=== PATIENT | female | born 1955 | race Caucasian/White ===

== ENCOUNTER 2024-06-19 08:11 | Observation (INO) ==
[~2024-06-19 08:11] MED LIST: Lidocaine 2% PF 5 ML VIAL ONE; Naloxone 0.4 mg VIAL 0.4 mg/ml 1 ml VIAL IV PRN; Ondansetron 4 mg VIAL 2 MG/ML 2 ml VIAL IV PRN
[2024-06-19] MEDS ORDERED: fentaNYL 100 mcg/2 ml 50 MCG/ML VIAL ONE ×2 (08:40→14:21)
[2024-06-19] MEDS ORDERED: Midazolam 2 mg/2 ml VIAL 1 mg/ml 2 ml VIAL (2 mg) ONE (08:40)
[2024-06-19] MEDS ORDERED: Dexamethasone IV 4 MG/ML VIAL 1 ml VIAL ONE (08:42)
[2024-06-19] MEDS ORDERED: Ondansetron 4 mg VIAL 2 MG/ML 2 ml VIAL ONE (08:42)
[2024-06-19] MEDS: Buffered Lidocaine 1% SYRIN 1 ml INTRADERM ONE (08:51)
[2024-06-19 08:57] LABS: Rapid COVID-19 Molecular Undetected (Undetected)
[2024-06-19] MEDS ORDERED: ceFAZolin 2 GM PREMIX 2 GM/50 ML BAG ONE (09:02)
[2024-06-19] MEDS ORDERED: Famotidine IV 10 MG/ML 2 ml VIAL (20 mg) ONE (09:02)
[2024-06-19] MEDS: Famotidine IV 10 MG/ML 2 ml VIAL (20 mg) IV ONE (09:09)
[2024-06-19] MEDS: Lactated Ringers 1000 ml BAG 1,000 ML IV SCH ×2 (09:10→16:51)
[2024-06-19] MEDS ORDERED: ROPIVACAINE 5 MG/ML 30 ML BTL (0.5%) ONE (10:05)
[2024-06-19] MEDS ORDERED: Bupivacaine 0.5% PF 10 ML SDV VIAL INJ ONE (10:40)
[2024-06-19] MEDS ORDERED: Ondansetron 4 mg VIAL 2 MG/ML 2 ml VIAL IV PRN (11:07)
[2024-06-19] MEDS ORDERED: Lactulose 30 ml UDC PO PRN (11:07)
[2024-06-19] MEDS ORDERED: Calcium Carb (TUMS) 500 mg CHEW TAB PO PRN (11:07)
[2024-06-19] MEDS ORDERED: Magnesium Hydroxide LIQ 30 ML UDC PO PRN (11:07)
[2024-06-19] MEDS ORDERED: Morphine 2 MG/ML SYRINGE IV PRN (11:07)
[2024-06-19] MEDS ORDERED: Propofol 10 MG/ML 20 ML BTL ONE ×4 (11:44→13:04)
[2024-06-19] MEDS: fentaNYL 100 mcg/2 ml 50 MCG/ML VIAL IV PRN (14:25)
[2024-06-19] MEDS: ceFAZolin 2 GM PREMIX 2 GM/50 ML BAG IV SCH ×2 (14:48→21:53)
[2024-06-19] MEDS: Ondansetron ODT 4 mg TAB 4 MG TAB PO PRN (21:44)
[2024-06-19] MEDS: Magnesium Hydroxide LIQ 30 ML UDC PO SCH (21:45)
[2024-06-20 06:18] LABS: Hematocrit 34.3 % (35-45); Hemoglobin 11.7 g/dL (11.5-14.3); Mean Platelet Volume 7.7 fL (7.5-11.2); Platelet Count 257 10^3/uL (150-450)
[2024-06-20 06:38] LABS: Calcium 9.7 mg/dL (8.6-10.3); Creatinine, Serum 0.92 mg/dL (0.51-0.95); Potassium 4.7 mmol/L (3.5-5.0); eGFR CKD-EPI 66.6 (>60)
[2024-06-20] MEDS: Vitamin THERAPEUTIC TAB PO SCH (08:14)
[2024-06-20 10:37] VITALS: BP 99/55
== END 2024-06-20 13:30 | disposition home or self-care (01) ==
LOC: OR 08:11 → SSU 08:11
PROVIDERS: ADMIT Orthopaedic Surgery Adult Reconstructive Orthopaedic Surgery; ATTEND Orthopaedic Surgery Adult Reconstructive Orthopaedic Surgery